=== PATIENT | male | born 1970 | race Caucasian/White ===

== ENCOUNTER → 2022-05-26 | Outpatient (CLI) | payer OTHER, SELFPAY ==
--- NOTE | 2022-05-26 13:56 | RAD_ITS ---
STUDY: X-RAY - LEFT HAND, ATTENTION FOURTH FINGER REASON FOR EXAM: Male, 52 years old. crush inj TECHNIQUE: 3 view(s) of the finger were obtained. COMPARISON: None. FINDINGS: A small linear fracture is present through the head of the distal phalanx of the fourth digit without displacement. The surrounding soft tissues are swollen. Normal metacarpal head. Normal metacarpophalangeal joint. Normal proximal phalanx. Normal middle phalanx. Normal proximal interphalangeal joint. Normal distal interphalangeal joint. RAD/Finger(s) Min 2 Views IMPRESSION: Hairline fracture through the head of the distal phalanx of the fourth finger. Electronically Signed: Jamla Rodriguez MD at 14:28 EST ,
== END | disposition home or self-care (01) ==
PROVIDERS: Referring Provider Physician Assistant Surgical; Visit Provider Physician Assistant Surgical
DX: S67.195A Crushing injury of left ring finger, initial encounter (principal)
CPT/HCPCS: 73140